=== PATIENT | male | born 1965 | race Caucasian/White ===

== ENCOUNTER 2018-04-04 08:38 | Inpatient (IN) | payer OTHER ==
[~2018-04-04] VITALS: Ht 188 cm; Wt 89.6 kg
[2018-04-04] MEDS ORDERED: FAMOTIDINE 20 MG/2 ML IVP ONE (09:30)
[2018-04-04] MEDS ORDERED: SODIUM CHLORIDE 0.9% 1,000ML IVBOLUS ONE (09:30)
[2018-04-04] MEDS ORDERED: SODIUM CHLORIDE FLUSH 10ML SYR IVF ONE (09:30)
[2018-04-04] MEDS ORDERED: ONDANSETRON ODT 4 MG PO ONE (09:30)
[2018-04-04] MEDS ORDERED: FAMOTIDINE 20 MG/2 ML ONE (09:33)
[2018-04-04] MEDS ORDERED: ONDANSETRON ODT 4 MG ONE (09:33)
[2018-04-04 10:01] LABS: ALBUMIN 4.1 g/dL (3.4-5.0); ANION GAP 20 mmol/L (5-15); CALCIUM 10.5 mg/dL (8.5-10.1); CHLORIDE 88 mmol/L (98-107)
[2018-04-04 10:04] LABS: ALANINE AMINOTRANSFERASE 149 U/L (12-78); ALKALINE PHOSPHATASE 174 U/L (45-117); BILIRUBIN,TOTAL 10.2 mg/dL (0.2-1.0); CREATININE 1.83 mg/dL (0.7-1.3); TOTAL PROTEIN 8.1 g/dL (6.4-8.2)
[2018-04-04 10:21] LABS: MEAN CORPUSCULAR HEMOGLOBIN 33.2 pg (27.5-34.5); RED BLOOD COUNT 5.98 x10^6/uL (4.38-5.82); RED CELL DISTRIBUTION WIDTH 18.5 % (9.4-14.8)
[2018-04-04 10:38] LABS: BASOPHILS # (AUTO) 0.01 x10^3/uL (0-0.1); BASOPHILS % (AUTO) 0 % (0-1); EOSINOPHILS # (AUTO) 0.01 x10^3/uL (0-0.4); EOSINOPHILS % (AUTO) 0 % (1-7); LYMPHOCYTES # (AUTO) 0.45 x10^3/uL (1-3.4); LYMPHOCYTES % (AUTO) 10 % (22-44); MD SCAN; MEAN PLATELET VOLUME 10.1 fL (7.4-10.4); MONOCYTES % (AUTO) 5 % (2-9); NEUTROPHILS # (AUTO) 3.72 x10^3/uL (1.8-6.8); NEUTROPHILS % (AUTO) 85 % (42-75)
[2018-04-04 10:39] LABS: PLATELET COUNT 90 x10^3/uL (130-400)
[2018-04-04] MEDS ORDERED: PANTOPRAZOLE 40 MG IV IVPush ONE (11:30)
[2018-04-04] MEDS ORDERED: LORazepam 2 MG/ML, 1ML IVPush ONE (11:30)
[2018-04-04] MEDS ORDERED: PANTOPRAZOLE 40 MG IV ONE (11:46)
[2018-04-04] MEDS ORDERED: LORazepam 2 MG/ML, 1ML ONE (11:47)
[2018-04-04] MEDS ORDERED: SODIUM CHLORIDE 0.9% 1,000 ML IV SCH (12:28)
[2018-04-04] MEDS ORDERED: ONDANSETRON ODT 4 MG PO PRN (12:30)
[2018-04-04] MEDS ORDERED: PROMETHAZINE 25 MG/ML, 1ML IM PRN (12:30)
[2018-04-04] MEDS ORDERED: ONDANSETRON 2MG/ML, 2ML IVPush PRN (12:30)
[2018-04-04] MEDS ORDERED: morphine SULFATE 10 MG/ML, 1ML IVPush PRN (12:30)
[2018-04-04] MEDS ORDERED: LABETALOL 5MG/ML, 20ML IVPush PRN (12:30)
[2018-04-04] MEDS ORDERED: OXYcodone IR 5MG TABLET PO PRN (12:30)
[2018-04-04] MEDS ORDERED: hydrALAzine 20 MG/ML, 1ML IVPush PRN (12:30)
[2018-04-04] MEDS ORDERED: POLYETHYLENE GLYCOL 17 GM PACKET PO PRN (12:30)
[2018-04-04] MEDS ORDERED: DOCUSATE 100 MG CAPSULE PO PRN (12:30)
[2018-04-04] MEDS ORDERED: OCTREOTIDE 500 MCG in SODIUM CHLORIDE 0.9% 249 ML IV SCH (13:00)
[2018-04-04] MEDS ORDERED: LORazepam 2 MG/ML, 1ML IV PRN ×4 (13:00)
[2018-04-04] MEDS ORDERED: LORazepam 0.5MG TABLET PO PRN (13:00)
[2018-04-04] MEDS ORDERED: LORazepam 1MG TABLET PO PRN ×3 (13:00)
[2018-04-04] MEDS ORDERED: THIAMINE 200 MG, MVI ADULT 10 ML, FOLIC ACID 1 MG in D5%-0.9% NACL 1,000 ML IV SCH (13:00)
[2018-04-04] MEDS ORDERED: PANTOPRAZOLE 80 MG in SODIUM CHLORIDE 0.9% 50 ML IV ONE (13:00)
[2018-04-04 13:14] LABS: FREE T4 (FREE THYROXINE) 1.03 ng/dL (0.76-1.46); THYROID STIMULATING HORMONE 4.05 mIU/L (0.358-3.740)
[2018-04-04 13:58] LABS: HEMOGLOBIN A1C 5.4 % (4.2-6.3)
[2018-04-04 14:30] VITALS: BP 146/99
[2018-04-04 15:00] VITALS: BP 146/99
[2018-04-04] MEDS: CEFOXITIN 1,000 MG in DEXTROSE 5% 50 ML IV SCH ×2 (15:43→20:52)
[2018-04-04 16:41] LABS: MICROSCOPIC INDICATED
[2018-04-04] MEDS: PANTOPRAZOLE 80 MG in SODIUM CHLORIDE 0.9% 100 ML IV SCH (17:26)
[2018-04-04 17:40] LABS: CULTURE INDICATED? NO
[2018-04-04] MEDS: METOPROLOL TARTRATE 25 MG TABLET PO SCH (18:32)
[2018-04-04 19:09] VITALS: BP 133/85
[2018-04-04] MEDS: LORazepam 1MG TABLET PO PRN (22:06)
[2018-04-05] MEDS: LORazepam 1MG TABLET PO PRN (00:36)
[2018-04-05] MEDS: LORazepam 2 MG/ML, 1ML IV PRN ×2 (00:54→04:11)
[2018-04-05] MEDS: D5%-0.9% NACL 1,000 ML IV SCH ×2 (01:03→07:00)
[2018-04-05] MEDS: PANTOPRAZOLE 80 MG in SODIUM CHLORIDE 0.9% 100 ML IV SCH ×2 (01:55→10:51)
[2018-04-05 02:42] VITALS: BP 124/85
[2018-04-05] MEDS: METOPROLOL TARTRATE 25 MG TABLET PO SCH ×2 (05:07→18:03)
[2018-04-05] MEDS: CEFOXITIN 1,000 MG in DEXTROSE 5% 50 ML IV SCH ×2 (05:08→16:49)
[2018-04-05 05:23] LABS: INTERNATIONAL NORMALIZED RATIO 1.82 (0.93-1.1); PROTHROMBIN TIME 18.5 Seconds (9.6-11.5)
[2018-04-05 05:25] LABS: MEAN CORPUSCULAR HEMOGLOBIN 33.7 pg (27.5-34.5); MEAN CORPUSCULAR HGB CONC 35.2 g/dL (33.2-36.2); MEAN CORPUSCULAR VOLUME 95.7 fL (81-97); RED BLOOD COUNT 4.78 x10^6/uL (4.38-5.82); RED CELL DISTRIBUTION WIDTH 18.3 % (9.4-14.8)
[2018-04-05 05:27] LABS: CHLORIDE 100 mmol/L (98-107)
[2018-04-05 05:36] LABS: ALANINE AMINOTRANSFERASE 106 U/L (12-78); ALBUMIN 2.9 g/dL (3.4-5.0); ALKALINE PHOSPHATASE 112 U/L (45-117); ANION GAP 9 mmol/L (5-15); BILIRUBIN,TOTAL 8.9 mg/dL (0.2-1.0); CALCIUM 8.1 mg/dL (8.5-10.1); CREATININE 1.11 mg/dL (0.7-1.3); HDL CHOLESTEROL (DIRECT) 18 mg/dL (40-60); TOTAL PROTEIN 5.8 g/dL (6.4-8.2)
[2018-04-05 05:42] LABS: CHOL/HDL RATIO 2.8; CHOLESTEROL, TOTAL < 50 mg/dL (140-239); HDL CHOL % 0 % (26-37); LDL CHOLESTEROL,CALCULATED 14 mg/dL (54-169); LDL/HDL RATIO 0.8 (0.5-3.0); TRIGLYCERIDES 88 mg/dL (50-200); VLDL CHOLESTEROL 18 mg/dL (0-25)
[2018-04-05 06:39] LABS: MEAN PLATELET VOLUME 9.3 fL (7.4-10.4)
[2018-04-05 06:40] LABS: PLATELET COUNT 29 x10^3/uL (130-400)
[2018-04-05 06:41] LABS: BASOPHILS # (AUTO) 0.02 x10^3/uL (0-0.1); BASOPHILS % (AUTO) 1 % (0-1); EOSINOPHILS # (AUTO) 0.02 x10^3/uL (0-0.4); EOSINOPHILS % (AUTO) 1 % (1-7); LYMPHOCYTES # (AUTO) 0.66 x10^3/uL (1-3.4); LYMPHOCYTES % (AUTO) 24 % (22-44); MD SCAN; MONOCYTES # (AUTO) 0.24 x10^3/uL (0.2-0.8); MONOCYTES % (AUTO) 9 % (2-9); NEUTROPHILS # (AUTO) 1.84 x10^3/uL (1.8-6.8); NEUTROPHILS % (AUTO) 66 % (42-75)
[2018-04-05 07:06] VITALS: BP 106/70
[2018-04-05] MEDS ORDERED: GADOBUTROL 10 MMOL/10 ML PFS ONE (12:14)
[2018-04-05] MEDS ORDERED: OMNIPAQUE 350 MG/ML, 75ML BOTTLE ONE (12:19)
[2018-04-05 12:40] VITALS: BP 116/79
[2018-04-05] MEDS ORDERED: PROPOFOL 10 MG/ML, 20ML ONE (13:27)
[2018-04-05] MEDS ORDERED: OXYcodone 5 MG/5 ML ORAL.SOL UDC PO PRN (14:00)
[2018-04-05] MEDS ORDERED: HYDROmorphone 1 MG/ML, 1ML IV PRN (14:00)
[2018-04-05] MEDS ORDERED: ONDANSETRON 2MG/ML, 2ML IV PRN (14:00)
[2018-04-05] MEDS ORDERED: FENTANYL PF 100 MCG/2ML IV PRN (14:00)
[2018-04-05] MEDS ORDERED: MIDAZOLAM 1 MG/ML, 2ML IV PRN (14:00)
[2018-04-05] MEDS: OMEPRAZOLE 20 MG CAPSULE.DR PO SCH (18:03)
[2018-04-05 19:16] VITALS: BP 114/74
[2018-04-06 00:32] VITALS: BP 110/70
[2018-04-06] MEDS: CEFOXITIN 1,000 MG in DEXTROSE 5% 50 ML IV SCH ×2 (01:48→08:08)
[2018-04-06] MEDS: METOPROLOL TARTRATE 25 MG TABLET PO SCH ×2 (06:32→17:14)
[2018-04-06 06:33] VITALS: BP 112/72
[2018-04-06] MEDS: FOLIC ACID 1 MG TABLET PO SCH (08:08)
[2018-04-06] MEDS: OMEPRAZOLE 20 MG CAPSULE.DR PO SCH ×2 (08:08→17:13)
[2018-04-06] MEDS: THIAMINE 100MG TABLET PO SCH (08:08)
[2018-04-06 10:58] LABS: MEAN CORPUSCULAR HEMOGLOBIN 34.1 pg (27.5-34.5); MEAN CORPUSCULAR HGB CONC 35.6 g/dL (33.2-36.2); MEAN CORPUSCULAR VOLUME 95.8 fL (81-97); RED BLOOD COUNT 4.61 x10^6/uL (4.38-5.82); RED CELL DISTRIBUTION WIDTH 17.6 % (9.4-14.8)
[2018-04-06 11:05] LABS: ALANINE AMINOTRANSFERASE 170 U/L (12-78); ALBUMIN 2.9 g/dL (3.4-5.0); ANION GAP 6 mmol/L (5-15); CALCIUM 8.2 mg/dL (8.5-10.1); CHLORIDE 98 mmol/L (98-107); CREATININE 1.01 mg/dL (0.7-1.3)
[2018-04-06 11:06] LABS: ALKALINE PHOSPHATASE 108 U/L (45-117); BILIRUBIN,TOTAL 12.1 mg/dL (0.2-1.0); TOTAL PROTEIN 5.8 g/dL (6.4-8.2)
[2018-04-06 11:12] LABS: MEAN PLATELET VOLUME 10.5 fL (7.4-10.4)
[2018-04-06 11:14] LABS: PLATELET COUNT 17 x10^3/uL (130-400)
[2018-04-06 11:16] LABS: BASOPHILS # (AUTO) 0.02 x10^3/uL (0-0.1); BASOPHILS % (AUTO) 1 % (0-1); EOSINOPHILS # (AUTO) 0.06 x10^3/uL (0-0.4); EOSINOPHILS % (AUTO) 2 % (1-7); LYMPHOCYTES # (AUTO) 0.52 x10^3/uL (1-3.4); LYMPHOCYTES % (AUTO) 20 % (22-44); MD SCAN; MONOCYTES # (AUTO) 0.15 x10^3/uL (0.2-0.8); MONOCYTES % (AUTO) 6 % (2-9); NEUTROPHILS % (AUTO) 71 % (42-75)
[2018-04-06 12:21] VITALS: BP 101/68
[2018-04-06] MEDS ORDERED: MAGNESIUM SULFATE PMX 2GM/50ML 50 ML IV ONE (12:30)
[2018-04-06] MEDS ORDERED: POTASSIUM CHLORIDE 20 MEQ TAB.ER.PRT PO ONE (12:30)
[2018-04-06 13:56] LABS: ANA SCREEN NEGATIVE (Negative)
[2018-04-06 20:01] VITALS: BP 104/65
[2018-04-06] MEDS: MAGNESIUM CHLORIDE 64 MG TABLET.DR PO SCH (20:57)
[2018-04-07 02:04] VITALS: BP 105/72
[2018-04-07 05:07] LABS: ALBUMIN 2.8 g/dL (3.4-5.0); ANION GAP 6 mmol/L (5-15); CALCIUM 8.3 mg/dL (8.5-10.1); CHLORIDE 101 mmol/L (98-107)
[2018-04-07 05:11] LABS: ALANINE AMINOTRANSFERASE 197 U/L (12-78); ALKALINE PHOSPHATASE 140 U/L (45-117); BILIRUBIN,TOTAL 13.1 mg/dL (0.2-1.0); CREATININE 0.79 mg/dL (0.7-1.3); MEAN CORPUSCULAR HEMOGLOBIN 33.6 pg (27.5-34.5); MEAN CORPUSCULAR HGB CONC 35.2 g/dL (33.2-36.2); MEAN CORPUSCULAR VOLUME 95.4 fL (81-97); MEAN PLATELET VOLUME 9.9 fL (7.4-10.4); RED BLOOD COUNT 4.55 x10^6/uL (4.38-5.82); RED CELL DISTRIBUTION WIDTH 18.1 % (9.4-14.8); TOTAL PROTEIN 5.6 g/dL (6.4-8.2)
[2018-04-07 05:27] LABS: PLATELET COUNT 21 x10^3/uL (130-400)
[2018-04-07 05:38] LABS: BASOPHILS # (AUTO) 0.01 x10^3/uL (0-0.1); BASOPHILS % (AUTO) 0 % (0-1); EOSINOPHILS # (AUTO) 0.06 x10^3/uL (0-0.4); EOSINOPHILS % (AUTO) 2 % (1-7); LYMPHOCYTES # (AUTO) 0.51 x10^3/uL (1-3.4); LYMPHOCYTES % (AUTO) 22 % (22-44); MD SCAN; MONOCYTES # (AUTO) 0.19 x10^3/uL (0.2-0.8); MONOCYTES % (AUTO) 8 % (2-9); NEUTROPHILS # (AUTO) 1.54 x10^3/uL (1.8-6.8); NEUTROPHILS % (AUTO) 67 % (42-75)
[2018-04-07] MEDS: METOPROLOL TARTRATE 25 MG TABLET PO SCH (06:00)
[2018-04-07 08:03] VITALS: BP 110/75
[2018-04-07] MEDS: MAGNESIUM CHLORIDE 64 MG TABLET.DR PO SCH (09:24)
[2018-04-07] MEDS: THIAMINE 100MG TABLET PO SCH (09:24)
[2018-04-07] MEDS: FOLIC ACID 1 MG TABLET PO SCH (09:24)
[2018-04-07] MEDS: OMEPRAZOLE 20 MG CAPSULE.DR PO SCH (09:24)
[2018-04-07] MEDS ORDERED: OMEP-110 PO (11:11)
== END 2018-04-07 13:15 | disposition home or self-care (01) | DRG 380 ==
LOC: ED 09:20 → 4WST 12:28 → DCLOUNGE 04-07 13:06
PROVIDERS: ADMIT Internal Medicine; ATTEND Internal Medicine
PROC: 0DB68ZX Excision of Stomach, Via Natural or Artificial Opening Endoscopic, Diagnostic (ICD-10-PCS; principal; 2018-04-05 13:15)
DX: K22.11 Ulcer of esophagus with bleeding (principal); N17.0 Acute kidney failure with tubular necrosis; E87.1 Hypo-osmolality and hyponatremia; F10.239 Alcohol dependence with withdrawal, unspecified; D18.09 Hemangioma of other sites; K29.21 Alcoholic gastritis with bleeding; D69.59 Other secondary thrombocytopenia; D72.819 Decreased white blood cell count, unspecified; E86.0 Dehydration; Y90.9 Presence of alcohol in blood, level not specified; K70.10 Alcoholic hepatitis without ascites; K76.0 Fatty (change of) liver, not elsewhere classified; R79.1 Abnormal coagulation profile; Z80.0 Family history of malignant neoplasm of digestive organs; Z87.11 Personal history of peptic ulcer disease; Z88.0 Allergy status to penicillin; R00.0 Tachycardia, unspecified
CPT/HCPCS: 36415; 74022; 99285; J7042; S0028; 71260; 72158; 74181; 76700; 80053; 80061; 80307; 81001; 81256; 82103; 82140; 82728; 83036; 83516; 83540; 83550; 83690; 83735; 84439; 84443; 85014; 85018; 85025; 85610; 86038; 86705; 86706; 86709; 86803; 88305; 93005; 96361; 96374; 96375; A9585; G0378; J2354; J2704; J3411; Q0162; Q9967; C9113; J0694; J2060; J3475; J7030; J7050

== ENCOUNTER 2018-04-27 15:25 | Emergency (ER) | payer MEDICAID ==
[~2018-04-27] VITALS: Ht 188 cm; Wt 106.0 kg
[~2018-04-27 15:25] MED LIST: OMEP-110 PO
[2018-04-27 16:12] LABS: BASOPHILS # (AUTO) 0.12 x10^3/uL (0-0.1); BASOPHILS % (AUTO) 1 % (0-1); EOSINOPHILS # (AUTO) 0.19 x10^3/uL (0-0.4); EOSINOPHILS % (AUTO) 1 % (1-7); LYMPHOCYTES # (AUTO) 1.33 x10^3/uL (1-3.4); LYMPHOCYTES % (AUTO) 10 % (22-44); MD NO; MEAN CORPUSCULAR HGB CONC 34.7 g/dL (33.2-36.2); MEAN CORPUSCULAR VOLUME 100.7 fL (81-97); MEAN PLATELET VOLUME 10.1 fL (7.4-10.4); MONOCYTES # (AUTO) 0.81 x10^3/uL (0.2-0.8); MONOCYTES % (AUTO) 6 % (2-9); NEUTROPHILS # (AUTO) 11.33 x10^3/uL (1.8-6.8); NEUTROPHILS % (AUTO) 82 % (42-75); PLATELET COUNT 135 x10^3/uL (130-400); RED BLOOD COUNT 4.25 x10^6/uL (4.38-5.82); RED CELL DISTRIBUTION WIDTH 18.9 % (9.4-14.8)
[2018-04-27 16:21] LABS: INTERNATIONAL NORMALIZED RATIO 1.4 (0.93-1.1); PROTHROMBIN TIME 14.5 Seconds (9.6-11.5)
[2018-04-27 16:24] LABS: ALBUMIN 1.8 g/dL (3.4-5.0); ANION GAP 7 mmol/L (5-15); CALCIUM 7.8 mg/dL (8.5-10.1); CHLORIDE 96 mmol/L (98-107)
[2018-04-27 16:28] LABS: ALANINE AMINOTRANSFERASE 126 U/L (12-78); ALKALINE PHOSPHATASE 188 U/L (45-117); CREATININE 0.99 mg/dL (0.7-1.3); TOTAL PROTEIN 5.6 g/dL (6.4-8.2)
[2018-04-27 16:29] LABS: BILIRUBIN,TOTAL 17.4 mg/dL (0.2-1.0)
[2018-04-27] MEDS ORDERED: LIDOCAINE-MPF 1%, 5ML ONE (17:16)
[2018-04-27 19:03] LABS: MICROSCOPIC INDICATED
[2018-04-27 19:09] LABS: CULTURE INDICATED? YES
[2018-04-27 20:22] VITALS: BP 117/74
== END 2018-04-27 20:41 | disposition home or self-care (01) ==
LOC: ED 16:14
DX: K70.31 Alcoholic cirrhosis of liver with ascites (principal); K70.11 Alcoholic hepatitis with ascites; E80.6 Other disorders of bilirubin metabolism
CPT/HCPCS: 36415; 49083; 76700; 80053; 81001; 82042; 83615; 83690; 85025; 85610; 87070; 87086; 87205; 89051; 99285

== ENCOUNTER 2018-04-29 10:50 | Emergency (ER) | payer MEDICAID ==
[~2018-04-29] VITALS: Ht 188 cm; Wt 104.0 kg
[2018-04-29 12:08] LABS: INTERNATIONAL NORMALIZED RATIO 1.37 (0.93-1.1); PROTHROMBIN TIME 14.2 Seconds (9.6-11.5)
[2018-04-29 12:09] LABS: ALANINE AMINOTRANSFERASE 115 U/L (12-78); ALBUMIN 1.8 g/dL (3.4-5.0); ANION GAP 9 mmol/L (5-15); CHLORIDE 98 mmol/L (98-107); CREATININE 0.81 mg/dL (0.7-1.3)
[2018-04-29 12:12] LABS: ALKALINE PHOSPHATASE 199 U/L (45-117); BILIRUBIN,TOTAL 14.4 mg/dL (0.2-1.0); TOTAL PROTEIN 5.5 g/dL (6.4-8.2)
[2018-04-29 12:21] LABS: MEAN CORPUSCULAR HEMOGLOBIN 33.6 pg (27.5-34.5); MEAN CORPUSCULAR HGB CONC 33.7 g/dL (33.2-36.2); MEAN CORPUSCULAR VOLUME 99.7 fL (81-97); RED BLOOD COUNT 4.26 x10^6/uL (4.38-5.82)
[2018-04-29 12:24] LABS: BASOPHILS # (AUTO) 0.04 x10^3/uL (0-0.1); BASOPHILS % (AUTO) 0 % (0-1); EOSINOPHILS # (AUTO) 0.13 x10^3/uL (0-0.4); EOSINOPHILS % (AUTO) 1 % (1-7); LYMPHOCYTES # (AUTO) 1.15 x10^3/uL (1-3.4); LYMPHOCYTES % (AUTO) 10 % (22-44); MD SCAN; MEAN PLATELET VOLUME 9.9 fL (7.4-10.4); MONOCYTES # (AUTO) 0.59 x10^3/uL (0.2-0.8); MONOCYTES % (AUTO) 5 % (2-9); NEUTROPHILS # (AUTO) 9.81 x10^3/uL (1.8-6.8); NEUTROPHILS % (AUTO) 84 % (42-75); PLATELET COUNT 104 x10^3/uL (130-400)
[2018-04-29 13:56] VITALS: BP 113/76
[2018-04-29] MEDS ORDERED: LIDOCAINE-MPF 1%, 5ML ONE (14:24)
[2018-04-29] MEDS ORDERED: LIDOCAINE 1%, 10ML INFIL ONE (14:30)
== END 2018-04-29 16:40 | disposition home or self-care (01) ==
LOC: ED 11:33
DX: K70.11 Alcoholic hepatitis with ascites (principal); E78.5 Hyperlipidemia, unspecified; E80.6 Other disorders of bilirubin metabolism
CPT/HCPCS: 36415; 49083; 80053; 85025; 85610; 85730; 99285

== ENCOUNTER → 2018-05-08 | Outpatient (CLI) | payer MEDICAID, OTHER | END | disposition home or self-care (01) | LOC: RAD 13:22 | PROVIDERS: ATTEND Internal Medicine Gastroenterology | DX: R17 Unspecified jaundice (principal); K70.9 Alcoholic liver disease, unspecified; R94.5 Abnormal results of liver function studies; R14.0 Abdominal distension (gaseous); K70.31 Alcoholic cirrhosis of liver with ascites | CPT/HCPCS: 49083; 82042; 84157; 87070; 87205; 88112; 88305; 89051 ==

== ENCOUNTER → 2018-05-23 | Outpatient (CLI) | payer MEDICAID ==
[~2018-05-23] MED LIST changes: +ALBUMIN HUMAN 25%, 25GM/100ML ONE; +LIDOCAINE-MPF 1%, 5ML ONE
== END | disposition home or self-care (01) ==
LOC: RAD 14:30
PROVIDERS: ATTEND Internal Medicine Gastroenterology
DX: R18.8 Other ascites (principal)
CPT/HCPCS: 49083; 82042; 84157; 87070; 87205; 88112; 88305; 89051; P9047